=== PATIENT | male | born 1965 | race Caucasian/White ===

== ENCOUNTER 2021-05-12 03:48 | Observation (INO) | payer OTHER, SELFPAY ==
[2021-05-12] VITALS (12 sets, daily range): BP systolic 95–154; BP diastolic 73–98; PULSE 69–97; RESP 14–21; TEMP 35.6–36.8; O2SAT 95–100; BMI 32.5
--- NOTE | ~2021-05-12 | XR_ITS ---
EXAMINATION: XR chest 1V portable DATE: 05/12/2021 04:47 INDICATION: Chest pain. COVID-19 exposure. TECHNIQUE: A single frontal view of the chest was obtained. COMPARISON: Chest 2 views 08/30/2019 FINDINGS: There are patchy airspace opacities involving all lung zones bilaterally. No pleural effusi on or pneumothorax. The heart size is normal. IMPRESSION: 1. Diffuse lung disease suspicious for COVID-19 pneumonia. Reviewed, dictated and finalized at [facility].
--- NOTE | 2021-05-12 03:55 | ECG_ITS ---
Measurements Intervals [place] Rate: 68 P: 28 NE: 178 QRS: 42 QRSD: 87 T: 28 QT: 380 QTc: 407 Interpretive Statements SINUS RHYTHM NORMAL ECG Electronically Signed On 05-12-2021 6:49:58 CDT by Diego Marroquin D.O.
--- NOTE | 2021-05-12 04:17 | ED.ALLEREA ---
HPI - Allergic Reaction General Chief complaint: Shortness of Breath/Dyspnea Stated complaint: facial swelling Time Seen by Provider: 05/12/21 04:10 Source: patient Mode of arrival: EMS Limitations: no limitations History of Present Illness HPI narrative: Patient is a 55-year-old male complaining of facial swelling, cannot open my eyes it swelled shut and also my are lip swelling when I woke up this morning . Denies any or throat swelling. Patient states that he took cough medication prior to going to sleep tonight, Phenergan with codeine, which was prescribed to him by his primary care physician 2 days ago. Patient was also given a Z-Finn. Patient states that he has been having cough, body aches and fatigue for the past week. Positive for exposure to Covid, and son is positive for Covid. Patient denies any chest pain, shortness of breath, pain, nausea, vomiting, diarrhea, fever or chills. Related Data Home Medications Medication Instructions Recorded Confirmed B/P Med 08/30/19 Allergies Allergy/AdvReac Type Severity Reaction Status Date / Time No Known Allergies Verified 12/20/10 09:46 NKDA Allergy Unknown Uncoded 12/20/10 09:46 Review of Systems Review of Systems: All systems reviewed & are unremarkable except as noted in HPI and below Constitutional: Constitutional: Denies body ache(s), Denies chills, Denies excessive sweating, Denies fever(s), Denies headache(s), Denies lethargy, Denies malaise, Denies weakness and Denies weight loss Eyes: Eyes: Denies blurry vision, Denies change in vision and Denies loss of vision ENT: Denies dizziness, Denies ear discharge, Denies headache(s), Denies lip swelling, Denies epistaxis, Denies nasal congestion, Denies neck pain, Denies throat swelling and Denies tongue swelling Cardiovascular: Cardiovascular: Denies chest pain, Denies chest pain at rest, Denies chest pain with activity, Denies diaphoresis, Denies rapid heart rate, Denies edema, Denies irregular heart rhythm, Denies lightheadedness, Denies palpitations, Denies dyspnea and Denies dyspnea on exertion Respiratory: Respiratory: Denies chest congestion, Denies hemoptysis, Denies dyspnea and Denies dyspnea on exertion Gastrointestinal: Gastrointestinal: Denies abdominal pain, Denies melena, Denies hematochezia, Denies diarrhea, Denies nausea, Denies vomiting and Denies hematemesis Musculoskeletal: Musculoskeletal: Denies abnormal gait, Denies deformity, Denies joint swelling, Denies limited range of motion, Denies neck pain and Denies numbness Neurologic: Denies Abnormal speech present, Denies abnormal gait, Denies confusion, Denies dizziness, Denies headache(s), Denies focal weakness, Denies loss of vision, Denies numbness, Denies Other visual disturbances, Denies Sensory deficit (Neuro) and Denies weakness Psychiatric: Psychiatric: Denies confusion, Denies depression, Denies auditory hallucinations, Denies homicidal ideation and Denies suicidal ideation Endocrine: Endocrine: Denies cold intolerance, Denies excessive sweating, Denies fatigue, Denies heat intolerance and Denies palpitations Hematologic/Lymphatic: Hematologic/Lymphatic: Denies easy bleeding and Denies easy bruising Allergic/Immunologic: Allergic/Immunologic: Denies lip swelling, Denies throat swelling and Denies tongue swelling PMFSH Past Medical History Medical History (Updated 05/12/21 @ 04:50 by Antoine Schwartz MD) Hypertension Social History Social History (Updated 08/30/19 @ 09:44 by Kaylen Hilliard NP) Smoking status: Smoker, status unknown Gender identity (if verbalized by the patient): Male Comments Past medical history: Hypertension Family history: Noncontributory Social history: Non-smoker no EtOH or drug use Exam Const: General: cooperative, healthy appearing, comfortable, no acute distress, well developed, alert and awake; No confusion Orientation/consciousness: oriented to person, oriented to place, oriented to ti
[2021-05-12] MEDS: EPINEPHrine HCL INJ 1 MG/ML AMPUL 0.3 MG SUB-Q (04:24)
[2021-05-12] MEDS: FAMOTIDINE 20 MG/2 ML VIAL IV PUSH ×3 (04:27→21:45)
[2021-05-12] MEDS: LACTATED RINGERS 1,000 ML 999 ML IV CONT (04:35)
[2021-05-12 05:09] LABS: Basophils Percent Auto 0.1 % (0.2-1.2); Eosinophils Absolute Auto 0.2 K/mm3 (0-0.3); Hematocrit 43.7 % (42.0-52.0); Hemoglobin 13.8 g/dL (14.0-18.0); Immature Granulocyte Absolute 0.06 K/mm3 (0.00-0.031); Immature Granulocyte Percent A 0.8 % (0-0.5); Lymphocytes Absolute Auto 1.24 K/mm3 (0.9-3.2); Lymphocytes Percent Auto 17.5 % (18.3-44.2); Mean Corpuscular HGB Conc 31.6 g/dl (32-36); Mean Corpuscular Hemoglobin 29.2 pg (26-34); Mean Corpuscular Volume 92.6 fl (80-100); Mean Platelet Volume 9.4 fl (7.4-10.4); Monocytes Absolute Auto 0.5 K/mm3 (0.1-0.6); Monocytes Percent Auto 6.8 % (2.6-8.5); Neutrophils Absolute Auto 5.1 K/mm3 (1.3-6.7); Neutrophils Percent Auto 71.8 % (45.5-73.1); Platelet Count Result 212 k/mm3 (150-375); Red Blood Count 4.72 M/mm3 (4.6-6.20); Red Cell Distribution Width 13.5 % (11.5-14.5); White Blood Count 7.1 K/mm3 (4.5-10.0)
[2021-05-12 05:22] LABS: Alanine Aminotransferase 36 U/L (4-50); Albumin Level 3.8 g/dL (3.5-5.1); Alkaline Phosphatase 78 U/L (38-126); Anion Gap 7 mmol/L (8-16); Aspartate Amino Transferase 44 U/L (17-59); Bilirubin,Total 0.4 mg/dL (0.2-1.3); Blood Urea Nitrogen 25 mg/dL (9-20); Calcium 8.7 mg/dL (8.4-10.2); Carbon Dioxide 29 mmol/L (22-30); Chloride 103 mmol/L (98-107); Estimated CRCL calculation 49 ml/min; Estimated Glomerular Filt Rate 39; Glucose 118 mg/dL (65-110); Potassium 4.6 mmol/L (3.4-5.0); Sodium 139 mmol/L (137-145)
[2021-05-12] MEDS: LACTATED RINGERS 1,000 ML 125 ML IV CONT ×2 (08:43→17:51)
[2021-05-12] MEDS: diphenhydrAMINE HCl INJ 50 MG/ML VIAL IV PUSH ×3 (08:44→17:52)
[2021-05-12] MEDS: guaiFENesin/DEXTROMETHORPHAN 10 ML UDC PO ×2 (10:17→14:25)
--- NOTE | 2021-05-12 13:40 | PM.IMHP ---
H&P: HPI History of Present Illness Date/Time: 05/12/21 11:40 Patient is a 55-year-old with a past medical history including but not limited to hypertension, chronic smoking who presented to the ED on 05/11/2021 with complaints of facial swelling for 24 hours prir to presentation. The patient was in his usual state of health until 11 days ago. HE noticed a recurrent dry non productive cough. He as been on lisinopril for years without any side effect. O arrival, patient states that cannot open my eyes it swelled shut and also my are lip swelling when I woke up this morning . He denies any difficulty breathing, difficulty swallowing or throat swelling. Patient states that he took cough medication prior to going to sleep yesterday, Phenergan with codeine, which was prescribed to him by his primary care physician 2 days ago prior to admission. Patient was also given a Z-Finn. Patient states that he has been having cough, body aches and fatigue for the past week. HIs and lorna have both been diagnosied positive for Covid, although they have mild or no symptoms. Patient denies any fever, chest pain, shortness of breath, pain, nausea, vomiting, diarrhea, fever or chills. Chief Complaint: Cough for 11 days and facial swelling for less than 2 days. Review of Systems Review of Systems: All systems reviewed & are unremarkable except as noted in HPI and below Constitutional: Constitutional: Denies body ache(s), Denies chills, Reports difficulty sleeping, Reports fatigue, Reports night sweats and Reports weakness Eyes: Eyes: Denies blurry vision ENT: Reports Normal hearing present, Denies dysphagia, Denies nasal congestion and Denies nasal discharge Cardiovascular: Cardiovascular: Reports no additional cardiovascular complaints, Denies chest pain, Denies diaphoresis, Denies pedal edema, Denies leg edema and Denies palpitations Respiratory: Respiratory: Denies chest congestion, Reports cough, Denies dyspnea and Denies wheezing Gastrointestinal: Gastrointestinal: Denies abdominal pain, Reports diarrhea and Reports vomiting Genitourinary: Genitourinary: Reports as per HPI Musculoskeletal: Musculoskeletal: Reports no additional musculoskeletal complaints, Denies back pain, Denies arthralgias, Denies joint swelling and Denies neck pain Integumentary/Breasts: Skin/Breast: Denies rash Neurologic: Denies confusion, Denies headache(s) and Denies numbness Psychiatric: Psychiatric: Denies anxiety and Denies confusion PMF Past Medical History Medical History (Updated 05/12/21 @ 14:45 by Namita Darby MD) Hypertension Family History Family History (Updated 05/12/21 @ 07:00 by Alexandre Neville RN) Father Coronary arteriosclerosis Social History Social History (Updated 08/30/19 @ 09:44 by Kaylen Hilliard NP) Smoking status: Never smoker Alcohol intake: current Drinks per week: 1 Substance use: never Substance use type: does not use Gender identity (if verbalized by the patient): Male Spiritual care concerns: No Meds Home Medications and Allergies Home Medications Medication Instructions Recorded Confirmed Type labetalol 100 mg PO BID 05/12/21 05/12/21 History lisinopril 40 mg PO DAILY 05/12/21 05/12/21 History Allergies Allergy/AdvReac Type Severity Reaction Status Date / Time No Known Allergies Verified 12/20/10 09:46 NKDA Allergy Unknown Uncoded 12/20/10 09:46 Vital Signs Vital Signs - 24 hr 05/12/21 03:47 05/12/21 03:55 05/12/21 05:37 Temperature 97.1 F L Pulse Rate 79 69 79 Respiratory Rate 14 19 Blood Pressure 95/73 L 125/81 Pulse Oximetry 97 97 100 05/12/21 07:00 05/12/21 08:00 05/12/21 10:15 Temperature 98.2 F 97.9 F Pulse Rate 72 75 Respiratory Rate 18 17 Blood Pressure 124/80 119/81 Pulse Oximetry 99 96 97 05/12/21 12:00 Temperature 96.6 F L Pulse Rate 85 Respiratory Rate 19 Blood Pressure 136/87 Pulse Oximetry 96 Exam Const: General: uncomforta
[2021-05-12 16:56] LABS: SARS-CoV-2 RNA PCR Positive
[2021-05-12] MEDS: BENZONATATE 100 MG CAPSULE 200 MG PO (17:52)
[2021-05-12] MEDS: LABETALOL HCL 100 MG TABLET PO (21:44)
[2021-05-12] MEDS: methylPREDNISolone SOD SUCC 125 MG VIAL 60 MG IV PUSH (21:52)
[2021-05-13] VITALS (8 sets, daily range): BP systolic 148–166; BP diastolic 82–96; PULSE 77–102; RESP 16–23; TEMP 36–36.1; O2SAT 95–99
[2021-05-13] MEDS: diphenhydrAMINE HCl INJ 50 MG/ML VIAL IV PUSH ×3 (00:38→12:02)
[2021-05-13] MEDS: LACTATED RINGERS 1,000 ML 125 ML IV CONT (00:43)
[2021-05-13] MEDS: methylPREDNISolone SOD SUCC 125 MG VIAL 60 MG IV PUSH (05:45)
[2021-05-13] MEDS: BENZONATATE 100 MG CAPSULE 200 MG PO ×2 (08:27→12:07)
[2021-05-13] MEDS: FAMOTIDINE 20 MG/2 ML VIAL IV PUSH (08:27)
[2021-05-13] MEDS: LABETALOL HCL 100 MG TABLET PO (08:28)
[2021-05-13] MEDS: amLODIPine BESYLATE 5 MG TABLET 10 MG PO (10:05)
--- NOTE | 2021-05-13 11:22 | PM.IMPN ---
Progress Note: A&P Assessment and Plan (1) Allergic angioedema: Qualifiers: Encounter type: initial encounter Qualified Code(s): T78.3XXA - Angioneurotic edema, initial encounter Code(s): T78.3XXA - Angioneurotic edema, initial encounter Status: Acute Assessment and Plan: Patient admitted to ICU for close monitoring of his airways. Angioedema induced by treatment with Malcolm -inhibitor. Improved with management with glucocorticoid, and antihistamines. Patient was given dexamethasone 10 mg IV once, benadryl 25 mg IV once and Pepcid 20 mg IV q 12hrs. He was started on fluids with lactated Ringer's. We will start solumedrol 60 mg IV every 8 hrs, continue benadryl 25 mg every 8 hrs, pepcid 20 mg every 12 hrs. (2) Hypertension: Code(s): I10 - Essential (primary) hypertension Status: Acute Assessment and Plan: Patient has been previously treated with labetalol 100 mg PO BID and lisinopril 40 mg PO daily. Avoid lisinopril and other ACEI lifelong. Start amlodipine 5 mg PO daily once BP 140/90. Add labetalol 100 mg PO BID if BP uncontrolled as a second agent upon discharge. (3) Cough: Code(s): R05 - Cough Status: Acute Assessment and Plan: We will mnage the cough symptomatically with robitussin, codeine or tessalon pearls. Subjective Date/time seen: 05/13/21 11:22 S: Patient is examined at the bedside. No complaints. Cough and angioedema are improving. COVID+, never been vaccinated. Review of Systems Review of Systems: All systems reviewed & are unremarkable except as noted in HPI and below Constitutional: Constitutional: Denies body ache(s), Denies chills, Reports difficulty sleeping, Reports fatigue, Denies headache(s), Reports night sweats and Reports weakness Eyes: Eyes: Denies blurry vision ENT: Reports Normal hearing present, Denies dysphagia, Denies headache(s), Denies nasal congestion, Denies nasal discharge and Denies neck pain Cardiovascular: Cardiovascular: Reports no additional cardiovascular complaints, Denies chest pain, Denies diaphoresis, Denies pedal edema, Denies leg edema, Denies palpitations and Denies dyspnea Respiratory: Respiratory: Denies chest congestion, Reports cough, Denies dyspnea and Denies wheezing Gastrointestinal: Gastrointestinal: Denies abdominal pain, Denies dysphagia, Reports diarrhea and Reports vomiting Genitourinary: Genitourinary: Reports as per HPI Musculoskeletal: Musculoskeletal: Reports no additional musculoskeletal complaints, Denies back pain, Denies arthralgias, Denies joint swelling, Denies neck pain and Denies numbness Integumentary/Breasts: Skin/Breast: Denies rash Neurologic: Reports Normal hearing present, Denies confusion, Denies headache(s), Denies numbness and Reports weakness Psychiatric: Psychiatric: Denies anxiety and Denies confusion Endocrine: Endocrine: Reports fatigue and Denies palpitations Allergic/Immunologic: Allergic/Immunologic: Denies wheezing Exam Const: General: uncomfortable; No confusion Orientation/consciousness: No confusion HENMT: Mouth: Yes moist mucous membranes Other: diffuse facial swelling Neck: Neck: no JVD Resp: Effort & Inspection: normal respiratory effort Auscultation: clear to auscultation bilaterally, no crackles, no rales and no rhonchi Cardio: Rate: regular rate Rhythm: regular rhythm Heart sounds: no gallops, no murmurs and no rubs GI: Inspection: non-distended Auscultation: normal bowel sounds Skin: General skin exam: normal color and no erythema Neuro: General: No confusion Cranial nerves: Yes Normal hearing present Motor exam (neuro): 5/5 motor strength present throughout Sensory Exam: normal sensation Extrem: General: normal to inspection Psych: Mental Status: mental status grossly normal Affect: normal affect Objective Data Vital Signs Vital Signs: Vital Signs - 24 hr 05/12/21 12:00 05/12/21 16:00 05/12/21 20:00 Temperature 96.6 F L 9
--- NOTE | 2021-05-13 18:31 | PM.DS ---
DS: Admitting Diagnosis Discharge Date 05/13/21 Cough Facial swelling Admitting Diagnosis angioedema COVID19 related cough DS: Discharge Diagnosis Discharge Diagnosis (1) Allergic angioedema: Qualifiers: Encounter type: initial encounter Qualified Code(s): T78.3XXA - Angioneurotic edema, initial encounter Code(s): T78.3XXA - Angioneurotic edema, initial encounter Status: Acute Assessment and Plan: Patient admitted to ICU for close monitoring of his airways. Angioedema induced by treatment with Andrea -inhibitor. Improved with management with glucocorticoid, and antihistamines. Patient was given dexamethasone 10 mg IV once, benadryl 25 mg IV once and Pepcid 20 mg IV q 12hrs. He was started on fluids with lactated Ringer's. We will start solumedrol 60 mg IV every 8 hrs, continue benadryl 25 mg every 8 hrs, pepcid 20 mg every 12 hrs. (2) COVID: Code(s): U07.1 - COVID-19 Status: Acute (3) Cough: Code(s): R05 - Cough Status: Acute Assessment and Plan: We will mnage the cough symptomatically with robitussin, codeine or tessalon pearls. (4) Hypertension: Code(s): I10 - Essential (primary) hypertension Status: Acute Assessment and Plan: Patient has been previously treated with labetalol 100 mg PO BID and lisinopril 40 mg PO daily. Avoid lisinopril and other ACEI lifelong. Start amlodipine 5 mg PO daily once BP 140/90. Add labetalol 100 mg PO BID if BP uncontrolled as a second agent upon discharge. DS: Summary Hospital Course Reason for hospitalization: Cough Facial swelling Chief Complaint: Cough for 11 days and facial swelling for less than 2 days. Hospital Course: Patient is a 55-year-old gentleman with a past medical history including but not limited to hypertension, chronic smoking who presented to the ED on 05/11/2021 with complaints of facial swelling for 24 hours prior to presentation. The patient was in his usual state of health until 11 days prior to admission. H2 noticed a recurrent dry non productive cough. He as been on lisinopril for years without any side effect. On arrival, patient states that cannot open my eyes it swelled shut and also my are lip swelling when I woke up this morning . He denies any difficulty breathing, difficulty swallowing or throat swelling. Patient states that he took cough medication prior to going to sleep yesterday, Phenergan with codeine, which was prescribed to him by his primary care physician 2 days ago prior to admission. Patient was also given a Z-Finn. Patient states that he has been having cough, body aches and fatigue for the past week. His and nom have both been diagnosed positive for Covid, although they have mild or no symptoms. Patient denies any fever, chest pain, shortness of breath, pain, nausea, vomiting, diarrhea, fever or chills. Patient admitted to ICU for close monitoring of his airways. He was stable hemodynamically and afebrile throughout the admission He was diagnosed clinically with angioedema induced by treatment with ANDREA -inhibitor. He was managed with glucocorticoid, and antihistamines. Patient was given dexamethasone 10 mg IV once, benadryl 25 mg IV once and Pepcid 20 mg IV q 12hrs. He was started on fluids with lactated Ringer's. He was solumedrol 60 mg IV every 8 hrs, continued on benadryl 25 mg every 8 hrs, pepcid 20 mg every 12 hrs. for his cough he receives tessalon, robitussin, and codeine. For his blood pressure, he was treated with labetalol and amlodipine. On day 2 of admission there was significant improvement of the facial edema and the cough. His COVID test returned positive. He was breathing comfortably on room air and did not have any other symptoms. Patient was discharged home to follow up with his PCP within 15 days given his COVID diagnosis. Status at Discharge Functional status at discharge: independent ambulation Overall status at discharge: patient is progressing back to baseline
== END 2021-05-13 16:10 | disposition home or self-care (01) ==
LOC: ANHED 04:50 → ANHICU 12:50
PROVIDERS: Admitting Provider Internal Medicine; Emergency Provider Emergency Medicine; PCP Internal Medicine; Visit Provider Internal Medicine
DX: U07.1 COVID-19 (principal); T78.3XXA Angioneurotic edema, initial encounter; I10 Essential (primary) hypertension; R05 Cough
CPT/HCPCS: 36415; 71045; 80053; 85025; 93005; 96361; 96372; 96374; 96375; 96376; 99285; A9270; C9803; G0378; J0171; J1100; J1200; J2930; J7120; U0003; U0005

== ENCOUNTER 2022-06-14 20:28 | Emergency (ER) | payer OTHER, SELFPAY ==
--- NOTE | ~2022-06-14 | CT_ITS ---
EXAMINATION: CT abdomen pelvis wo con DATE: 21:56 INDICATION: Left flank pain for 3 days TECHNIQUE: Computed tomography (CT) of the abdomen and pelvis was performed without intravenous contr ast. Automated exposure control and iterative reconstruction technique were employed. Exam dose: 112 7.48 mGy-cm total exam DLP. COMPARISON: None. FINDINGS: The lung bases are clear of infiltrate or consolidation. Coronary artery calcifications. Heart size is within normal range. No pericardial or pleural effusion . Numerous hepatic and splenic calcified granulomas consistent with old granulomatous disease. No hepat ic, splenic, pancreatic, and adrenal or renal space-occupying mass lesion. 6.6 mm nonobstructing right renal calculus The urinary tract calculus or hydroureteronephrosis. Normal caliber of the abdominal aorta. No intraperitoneal or retroperitoneal or pelvic mass lesion or adenopathy or ascites. The urinary bladder and prostate gland are unremarkable. Small sliding hiatal hernia. No bowel obstruction, bowel wall thickening, pneumatosis or intraperiton eal free air. No suspicious osteolytic or osteoblastic lesions. IMPRESSION: Nonobstructive mild left nephrolithiasis Small sliding hiatal hernia Reviewed, dictated and finalized at [facility]. Reviewed, dictated and finalized at [facility].
[2022-06-14 20:36] VITALS: BP 152/102; PULSE 78; RESP 16; O2SAT 96
[2022-06-14 21:59] LABS: Add Urine Microscopic? NO; Appearance Urine Clear (Clear); Bilirubin Urine Negative (Negative); Blood Urine Negative (Negative); Color Urine Yellow (Yellow); Glucose Urine UA Negative (Negative); Ketones Urine Negative (Negative); Leukocyte Esterase Ur Negative LEU/UL (Negative); Nitrate Urine Negative (Negative); Protein Urine Negative (Negative); Specific Grav Ur 1.019 (1.001-1.035); Urobilinogen Urine Negative mg/dL (<2.0)
[2022-06-14 22:01] LABS: Alanine Aminotransferase 25 U/L (6-50); Albumin Level 4.2 g/dL (3.5-5.1); Alkaline Phosphatase 62 U/L (38-126); Anion Gap 8 mmol/L (8-16); Aspartate Amino Transferase 30 U/L (17-59); Bilirubin,Total 0.7 mg/dL (0.2-1.3); Blood Urea Nitrogen 21 mg/dL (9-20); Calcium 8.4 mg/dL (8.4-10.2); Carbon Dioxide 27 mmol/L (22-30); Chloride 104 mmol/L (98-107); Estimated CRCL calculation 54 ml/min; Estimated Glomerular Filt Rate 45; Glucose 112 mg/dL (65-110); Lipase 90 U/L (23-300); Potassium 4.4 mmol/L (3.4-5.0); Sodium 139 mmol/L (137-145)
--- NOTE | 2022-06-14 22:27 | ED.GENADULT ---
HPI - General Adult General Chief complaint: Unspecified Stated complaint: Left Flank Pain Time Seen by Provider: 06/14/22 20:53 History of Present Illness HPI narrative: Patient is 37-year-old presents emergency department with chief complaint of left flank pain. Patient reports that he started having symptoms on Monday after he had sneezed. The patient states pain is a sharp type pain patient states is worse with specific movements and also when he sneezes or coughs. Patient reports he has prior history of kidney stones and reports that he is concerned that he may have a stone that he is trying to pass. Patient denies fever denies vomiting Related Data Home Medications Medication Instructions Recorded Confirmed labetalol 100 mg tablet 100 mg PO BID 05/12/21 05/12/21 Allergies Allergy/AdvReac Type Severity Reaction Status Date / Time lisinopril Allergy Swelling Verified 06/14/22 20:41 Review of Systems Review of Systems: A 10 system review of systems was completed on the patient and is negative except for what is stated in the HPI. Nursing and ancillary documentation was reviewed. [facility] Past Medical History Medical History Hypertension Family History Family History Father Coronary arteriosclerosis Social History Social History Smoking status: Never smoker Alcohol intake: current Drinks per week: 1 Substance use: never Substance use type: does not use Gender identity (if verbalized by the patient): Male Spiritual care concerns: No Exam Narrative: GENERAL: Well-appearing, well-nourished, and in no acute distress. HEAD: Normocephalic, atraumatic. EYES: PERRLA and EOMI. ENT: Nares clear, no rhinorrhea or epistaxis. Mucous membranes moist. NECK: Supple. CHEST: Clear to auscultation. No respiratory distress. HEART: Regular rate and rhythm. No murmur heard. Normal peripheral pulses. ABDOMEN: Soft, nontender, nondistended, normal active bowel sounds. EXTREMITIES: Normal range of motion. No edema. SKIN: Warm, dry, no rash. NEURO: No focal deficits. Alert and oriented x3. PSYCH: Normal mood and affect. Course Vital Signs Vital signs: Vital Signs Pulse Rate 78 06/14/22 20:36 Respiratory Rate 16 06/14/22 20:36 Blood Pressure 152/102 H 06/14/22 20:36 Pulse Oximetry 96 06/14/22 20:36 Oxygen Delivery Room Air 06/14/22 20:36 Pulse Rate 78 06/14/22 20:36 Respiratory Rate 16 06/14/22 20:36 Blood Pressure 152/102 H 06/14/22 20:36 Pulse Oximetry 96 06/14/22 20:36 Oxygen Delivery Room Air 06/14/22 20:36 Medical Decision Making Vital Signs Vital Signs: Vital Signs Pulse Rate 78 06/14/22 20:36 Respiratory Rate 16 06/14/22 20:36 Blood Pressure 152/102 H 06/14/22 20:36 Pulse Oximetry 96 06/14/22 20:36 Oxygen Delivery Room Air 06/14/22 20:36 Pulse Rate 78 06/14/22 20:36 Respiratory Rate 16 06/14/22 20:36 Blood Pressure 152/102 H 06/14/22 20:36 Pulse Oximetry 96 06/14/22 20:36 Oxygen Delivery Room Air 06/14/22 20:36 Lab Data Result diagrams: 06/14/22 20:59 06/14/22 21:28 Labs: Lab Results 06/14/22 06/14/22 06/14/22 Range/Units 20:59 20:59 21:28 WBC Pending RBC Pending Hgb Pending Hct Pending MCV Pending MCH Pending MCHC Pending RDW Pending Plt Count Pending MPV Pending Immature Gran % (Auto) Pending Neut % (Auto) Pending Lymph % (Auto) Pending [place] % (Auto) Pending Eos % (Auto) Pending Baso % (Auto) Pending Lymph # (Auto) Pending [place] # (Auto) Pending Eos # (Auto) Pending Baso # (Auto) Pending Abs Immat Gran (auto) Pending Absolute Neuts (auto) Pending Absolute Nucleate
[2022-06-14 22:50] LABS: Basophils Absolute Auto 0.1 K/mm3 (0.0-0.1); Basophils Percent Auto 0.6 % (0.2-1.2); Eosinophils Absolute Auto 0.3 K/mm3 (0-0.3); Eosinophils Percent Auto 3.8 % (0-4.4); Hematocrit 42.9 % (42.0-52.0); Hemoglobin 14.1 g/dL (14.0-18.0); Immature Granulocyte Absolute 0.02 K/mm3 (0.00-0.031); Immature Granulocyte Percent A 0.2 % (0-0.5); Lymphocytes Absolute Auto 1.75 K/mm3 (0.9-3.2); Lymphocytes Percent Auto 20.9 % (18.3-44.2); Mean Corpuscular HGB Conc 32.9 g/dl (32-36); Mean Corpuscular Hemoglobin 29.9 pg (26-34); Mean Corpuscular Volume 90.9 fl (80-100); Mean Platelet Volume 9.2 fl (7.4-10.4); Monocytes Absolute Auto 0.6 K/mm3 (0.1-0.6); Monocytes Percent Auto 7.5 % (2.6-8.5); Neutrophils Absolute Auto 5.6 K/mm3 (1.3-6.7); Platelet Count Result 262 k/mm3 (150-375); Red Blood Count 4.72 M/mm3 (4.6-6.20); Red Cell Distribution Width 13.3 % (11.5-14.5); White Blood Count 8.4 K/mm3 (4.5-10.0)
[2022-06-14] MEDS: ORPHENADRINE CITRATE 100 MG TABLET.ER PO (22:52)
[2022-06-14] MEDS: KETOROLAC 30 MG/ML VIAL (*BKC) IM (22:52)
[2022-06-14 23:10] VITALS: BP 160/110; RESP 16; O2SAT 100
== END 2022-06-14 23:11 | disposition home or self-care (01) ==
PROVIDERS: Emergency Provider Emergency Medicine; PCP Internal Medicine
DX: R10.9 Unspecified abdominal pain (principal); I10 Essential (primary) hypertension
CPT/HCPCS: 36415; 74176; 80053; 81003; 83690; 85025; 96372; 99284; A9270; J1885